=== PATIENT | female | born 1940 | race Caucasian/White ===

== ENCOUNTER 2018-12-31 06:20 | Day surgery (SDC) | payer OTHER ==
[~2018-12-31 06:20] MED LIST: ASPIRIN81 M1 PO; VASOTEC10 MG; ZOCOR PO; [UNRECOGNIZED DRUG - OTHER] PO
[2018-12-31] MEDS ORDERED: TRAMADOL HCL50 MG PO (09:19)
[2018-12-31] MEDS ORDERED: NABUMETONE500 MG PO (09:19)
== END 2018-12-31 12:55 | disposition home or self-care (01) ==
LOC: CIR.AMB 06:20
DX: M23.351 Other meniscus derangements, posterior horn of lateral meniscus, right knee (principal); M23.321 Other meniscus derangements, posterior horn of medial meniscus, right knee; M65.861 Other synovitis and tenosynovitis, right lower leg; M13.861 Other specified arthritis, right knee; M94.261 Chondromalacia, right knee